=== PATIENT | male | born 1950 | race Caucasian/White ===

== ENCOUNTER 2018-06-24 06:19 | Day surgery (SDC) | payer OTHER ==
--- NOTE | 2018-06-22 10:20 | GHP ---
DATE OF ADMISSION: 06/24/2018 DATE OF SURGERY: 06/24/2018. PREOPERATIVE DIAGNOSES: Umbilical hernia, ventral hernia. HISTORY OF PRESENT ILLNESS: A 67-year-old man who was evaluated in our office in April of 2018. He developed an umbilical hernia and ventral hernia following cholecystectomy 2009. It is stable in size. Lying down makes it better. It is reducible. He has obtained cardiac clearance from his organic extractions technician, Dr. Kemal patton. He denies any worsening symptoms. At time of his original consultation, no changes in his health. PAST MEDICAL HISTORY: Hypertension, hyperlipidemia. PAST SURGICAL HISTORY: Heart. FAMILY HISTORY: Significant for hypertension. SOCIAL HISTORY: Former alcohol. No tobacco, alcohol, or recreational drug use. REVIEW OF SYSTEMS: 10-point review of systems negative, aside from HPI. PHYSICAL EXAMINATION: GENERAL: Well-developed, well-nourished man in no acute distress. HEENT: Normocephalic, atraumatic. No hearing deficits. Pupils equal and round. No scleral icterus. Mucous membranes moist. RESPIRATORY: No increased work of breathing. CARDIOVASCULAR: No peripheral edema. Regular rate and rhythm. ABDOMEN: Soft, nondistended, nontender. Reducible supraumbilical ventral and umbilical hernia. Diastasis recti is present. PSYCH : Mood and affect normal. NEURO: Grossly intact. IMPRESSION/PLAN: 67-year-old man with supraumbilical incisional and umbilical hernia present, as well as diastasis rectus. He would like to proceed with open hernia repair with mesh. We discussed risks of surgery, including infection, bleeding, damage to surrounding structures, need for additional procedures, recurrence. He understands risks and would like to proceed. We anticipate this to be outpatient procedure. He has obtained cardiac clearance and will discontinue his anticoagulation preop. Patient was additionally seen by Dr. Lyssa Garza. /[id number]/MODL MTDD
[~2018-06-24 06:19] MED LIST: ceFAZolin 3 GM in D5W 100 ML IV ONE
[2018-06-24] MEDS ORDERED: LR 1,000 ML IV ONE (06:26)
--- NOTE | 2018-06-24 07:14 | PDHPUP ---
History & Physical Update H&P update statement: This history and physical update is based on an assessment of the patient which was completed after admission or registration (within 24 hours), but prior to the surgery/procedure. H&P update: H&P reviewed & patient examined, no change in patient's condition since H&P completed
[2018-06-24] MEDS ORDERED: BUPIVACAINE 0.5% 30 ML SDV ONE (07:34)
[2018-06-24] MEDS ORDERED: PROPOFOL 200 MG/20 ML VIAL ONE (08:13)
[2018-06-24] MEDS ORDERED: fentaNYL 100 MCG/2 ML INJ ONE (08:15)
[2018-06-24] MEDS ORDERED: ONDANSETRON 4 MG/2 ML VIAL ONE (08:29)
[2018-06-24] MEDS ORDERED: DEXAMETHASONE 4 MG/ML VIAL ONE (08:29)
[2018-06-24] MEDS ORDERED: ROCURONIUM 50 MG/5 ML VIAL ONE ×2 (08:29→08:51)
[2018-06-24] MEDS ORDERED: LIDOCAINE 2% 5 ML SDV ONE (08:30)
--- NOTE | 2018-06-24 08:49 | PDANEPAE ---
ANE History of Present Illness hernia repair ANE Past Medical History - Cardiovascular History Hx Hypertension: Yes Hx Arrhythmias: Yes Hx Chest Pain: No Hx Coronary Artery / Peripheral Vascular Disease: Yes Hx CHF / Valvular Disease: Yes Cardiovascular History Comment: mitral valve. ATRIAL FIB - MOST RECENT 04/2018 - CARDIOLOGY DR PAM MALONEY AT [facility] – [place]. ELIQUIS - Pulmonary History Hx COPD: No Hx Asthma/Reactive Airway Disease: Yes Hx Recent Upper Respiratory Infection: No Hx Oxygen in Use at Home: No Hx Sleep Apnea: Yes Sleep Apnea Screening Result - Last Documented: Positive Pulmonary History Comment: seasonal allergies-hayfever. HX - POS SLEEP APNEA - NO CPAP - Neurologic History Hx Cerebrovascular Accident: No Hx Seizures: No Hx Dementia: No Neurologic History Comment: peripheral neuropathy both legs - Endocrine History Hx Diabetes: No Hypothyroid: No Hyperthyroid: No Obesity: moderate - Renal History Hx Renal Disorders: Yes Renal History Comment: increased urinary frequency - NOC - Liver History Hx Hepatic Disorders: No - Neurological & Psychiatric Hx Hx Neurological and Psychiatric Disorders: No - Cancer History Hx Cancer: No - Congenital Disorder History Hx Congenital Disorders: No - GI History GERD: mild Hx Gastrointestinal Disorders: Yes Gastrointestinal History Comment: chronic heartburn - Other Health History Other Health History: R ear loss of hearing- mumps 3yo. deviated nasal septum. osteoarthritis joints - Chronic Pain History Chronic Pain: Yes (joints, TERRY FEET NEUROPATHY) - Surgical History Prior Surgeries: R ARVIN. L knee plasty 2010. GB 2010. R knee plasty 2007. mitral valve repair 2002. VEIN STRIPPING ANE Review of Systems Review of Systems: - Exercise capacity Exercise capacity: >=4 METS METS (RN): 4 METS - Cardio Pulmonary Function Testing Transthoracic echocardiogram (TTE): 03/29/18 EF 55-60%, abnormal septal motion c/w post operative state, RV ventricular function mildly reduced, moderate TR, RVSP estimate 60-65 mmHg ANE Patient History - Allergies Allergies/Adverse Reactions: meperidine [Meperidine] Allergy (Severe, Verified 05/02/10 16:42) N/V - Home Medications Home medications: home medication list seen and reviewed Home Medications: Atorvastatin Calcium [Lipitor 20 mg (*)] 20 mg PO DAILY 11/15/10 [Last Taken ] LOSARTAN POTASSIUM [COZAAR] 100 mg PO DAILY 11/15/10 [Last Taken 06/23/18] Aspirin EC [Aspirin EC 81 mg (*)] 81 mg PO DAILY 11/01/13 [Last Taken 06/23/18] Fluticasone Nasal [Flonase Nasal [place]] 1 sprays EACHNARE DAILY PRN 11/01/13 [ Last Taken 06/24/18] Lipase 4,200/Amylase/Protease [Pancreaze 4.2] 1 cap PO PRN PRN 11/01/13 [Last Taken 06/23/18] Metoprolol Tartrate [Lopressor 50 mg (*)] 75 mg PO BID 11/01/13 [Last Taken ] Multivitamins [Multivitamin (*)] 1 each PO DAILY 11/01/13 [Last Taken 06/22/18] amLODIPine BESYLATE [Norvasc 5 mg (*)] 5 mg PO DAILY 11/01/13 [Last Taken ] oxyCODONE/APAP 5/325 [Percocet 5/325 (*)] 0.5 - 1 tab PO TID PRN 11/01/13 [Last Taken 06/23/18] Albuterol [Proventil Inhaler HFA (*)] 1 - 2 puffs IH Q4 PRN 11/08/13 [Last Taken 06/24/18] Metoprolol Tartrate [Lopressor 50 mg (*)] 75 mg PO DAILY PRN 11/08/13 [Last Taken 06/23/18] Diclofenac Sodium 1% 06/23/18 [Last Taken 06/24/18] Eliquis 06/23/18 [Last Taken 06/22/18] Potassium Acetate 06/23/18 [Last Taken 06/24/18] Terazosin HCl 06/23/18 [Last Taken 06/23/18] - NPO status NPO Status: no food or drink >8 hours NPO Since - Liquids (Date): 06/24/18 NPO Since - Liquids (Time): 05:15 NPO Since - Solids (Date): 06/23/18 NPO Since - Solids (Time): 19:00 - Smoking Hx Smoking Status: Never smoked - Family Anes Hx Family Hx Anesthesia Complications: no ANE Labs/Vital Signs - Vital Signs Blood Pressure: 150/97 Heart Rate: 109 Respiratory Rate: 20 O2 Sat (%): 91 Height: 187.96 cm Weight: 122.47 kg ANE Physical Exam - Airway Neck exam: FROM Mallampati Score: Class 3 Mouth exam: small mouth opening - Pulmonary Pulmonary: no respiratory distress - Cardiovascular Cardiovascular: regular rate and rhythym - ASA Status ASA Status: III ANE Anesthesia Plan Anesthesia Plan: general endotracheal anesthesia
[2018-06-24] MEDS ORDERED: ESMOLOL HCL 100 MG/10 ML VIAL IV ONE (09:12)
[2018-06-24] MEDS ORDERED: METOCLOPRAMIDE 10 MG/2 ML VIAL IVP PRN (09:13)
[2018-06-24] MEDS ORDERED: PROMETHAZINE HCL 25 MG/ML INJ IVP PRN (09:13)
[2018-06-24] MEDS ORDERED: fentaNYL 100 MCG/2 ML INJ IVP PRN (09:13)
[2018-06-24] MEDS ORDERED: NALOXONE HCL 0.4 MG/ML INJ IVP PRN (09:13)
[2018-06-24] MEDS ORDERED: LR 500 ML IV PRN (09:13)
[2018-06-24] MEDS ORDERED: ALBUTEROL 3 ML DEYVIAL IH PRN (09:13)
[2018-06-24] MEDS ORDERED: oxyCODONE IR 5 MG TAB PO PRN (09:13)
[2018-06-24] MEDS ORDERED: ACETAMINOPHEN 500 MG TAB PO PRN (09:13)
[2018-06-24] MEDS ORDERED: HYDROmorphONE/DILAUDID 2 MG/ML INJ IVP PRN (09:13)
[2018-06-24] MEDS ORDERED: LABETALOL HCL 20 MG/4 ML INJ IVP PRN (09:13)
--- NOTE | 2018-06-24 09:29 | POSTOPPROG ---
Post Op Note Date of Operation: 06/24/18 Surgeon: Lyssa Garza Anesthesiologist: Kevin Anesthesia: GET(General Endotracheal) Pre-op Diagnosis: incarcerated ventral and umbilical hernia Post-op Diagnosis: same Indication: 67 yo with incarcerated ventral and umbilical hernia Procedure: open umbilical and open ventral hernia repair with mesh Findings: incarcerated omentum Inf/Abcess present in the surg proc area at time of surgery?: No EBL: Minimal Specimen(s): none
--- NOTE | 2018-06-24 10:20 | GOP ---
DATE OF OPERATION: 06/24/2018 SURGEON: Lyssa Garza MD ANESTHESIA: General. ANESTHESIOLOGIST: Ervin Brown MD. PREOPERATIVE DIAGNOSIS: Incarcerated umbilical and incarcerated ventral hernia. POSTOPERATIVE DIAGNOSIS: Incarcerated umbilical and incarcerated ventral hernia. PROCEDURE PERFORMED: Open umbilical hernia repair with mesh, open ventral hernia repair with mesh. FINDINGS: Umbilical hernia defect measured approximately 2 cm and ventral hernia measured approximat nasir 2 cm. They each had a large amount of omentum above the fascia. SPECIMENS: None. ESTIMATED BLOOD LOSS: 10 cc. INDICATIONS: The patient is a 67-year-old who an umbilical hernia, and he also had a ventral hernia. DESCRIPTION OF PROCEDURE: Patient was brought into the operating room, placed supine on the table, a nd general anesthesia was administered. His abdomen was prepped and draped in the usual sterile fash ion. I infiltrated all sites with 0.5% Marcaine prior to making incisions. I made an incision beneath his umbilicus. I dissected down through the skin and subcutaneous fat. I dissected around the umbilicus with a hemostats and then dissected the umbilical stalk free from the incarcerated omentum. I had to excise the omentum in order to clear the fascial edges. I then was able to clear the space preperitoneal and intraperitoneal. The defect was approximately 2 cm. Due t o his obesity, I elected to place a piece of Parietex composite ventral patch, 4.6 cm. This was sutu red in place with 0 Surgilon and a few reinforcement sutures were performed, so that no bowel would b e able to come underneath the mesh. The fascia was closed with 0 PDS. Neoumbilicus created with 2-0 Vicryl. Skin closed with 3-0 Vicryl, followed by 4-0 Monocryl. Next, I made a transverse incision over his ventral hernia in the right upper quadrant. I immediatel y encountered incarcerated omentum. I carefully dissected this free from the dermis. There was a la rge amount of well encapsulated fat in a hernia sac. I also had to amputate this in order to define the edges. Although this defect was small, only approximately 2 cm, the fascia was weakened and he w as obese. I paced a Parietex composite ventral patch in a similar fashion. I then sutured the defec t closed with 0 PDS and skin closed with 0 Vicryl, followed by 4-0 Monocryl. Mastisol, Steri-Strips, sterile dressings applied. He was awakened in the operating room, extubated, transferred to PACU in stable condition. /[id number]/MODL
--- NOTE | 2018-06-24 11:15 | PDHOMEO2F ---
Home Oxygen Face to Face Home Orders: I certify that a physician or a nurse practitioner or physician's broker assistant has had a [id number] encounter with this patient on the date of this order due to the diagnosis listed, which relates to the primary reason the patient requires home oxygen. Alternative treatments have been tried, or considered, and deemed ineffective. It is anticipated that supplemental oxygen will result in improvement with treatment. Home oxygen qualifying diagnosis: ANTOINE Home oxygen secondary diagnosis: Restrictive lung disease 2/2 obesity, recent abdominal surgery SpO2 on room air (%): 74 Frequency of home oxygen needed: continuous Home oxygen liters per minute: 2 Home oxygen delivery device: nasal cannula Concentrator: No E-tanks for mobility and back up: Yes If ordering portable O2, is the patient mobile in the home?: Yes I certify that, based on these findings, the home oxygen is medically necessary for this patient for the following length of time. Length of time home oxygen needed: 1 week (needs to follow up with PCP regarding ANTOINE and possible CPAP or oxygen use at home)
--- NOTE | 2018-06-24 12:27 | POSTANESTH ---
Post Anesthetic Evaluation Cardiovascular Status: Normal, Stable Respiratory Status: Tx Decrease in SpO2 (home O2 consult ordered 2/2 to decreased sat in PACU. Pt was aware of this prior to surgery as we had talked about high likelyhood of requiring home 02 2/2 ANTOINE, restrictive lung disease 2/ 2 obesity, and abdominal surgery.) Level of Consciousness/Mental Status: Can Participate in Eval Pain Control: Adequate, Prn Tx Ordered Nausea/Vomiting Control: Adequate, Prn Tx Ordered Complications Possibly Related to Anesthesia: None Noted
[2018-06-24 13:26] VITALS: BP 136/93
== END 2018-06-24 13:23 | disposition home or self-care (01) ==
LOC: FSGY 06:19
PROVIDERS: ATTEND Surgery
DX: K43.0 Incisional hernia with obstruction, without gangrene (principal); K42.0 Umbilical hernia with obstruction, without gangrene; I10 Essential (primary) hypertension; E78.5 Hyperlipidemia, unspecified; E66.9 Obesity, unspecified; Z68.34 Body mass index [BMI] 34.0-34.9, adult; I34.9 Nonrheumatic mitral valve disorder, unspecified; I48.91 Unspecified atrial fibrillation; G47.33 Obstructive sleep apnea (adult) (pediatric); Z79.01 Long term (current) use of anticoagulants; Z96.641 Presence of right artificial hip joint
CPT/HCPCS: C1781; J0690; J1100; J2405; J2704; J3010